=== PATIENT | female | born 1975 | race Caucasian/White ===

== ENCOUNTER 2016-09-28 18:10 | Emergency (ER) | payer BC ==
[2016-09-28 20:21] LABS: HEMOGLOBIN 14.7 gm/dl (12.3-15.3); RED BLOOD COUNT 4.7 M/UL (4.00-5.10); WHITE BLOOD COUNT 5.3 K/UL (4.5-11.0)
[2016-09-28 20:49] LABS: BUN/CREATININE RATIO 12 (0-10)
== END 2016-09-28 21:30 | disposition home or self-care (01) ==
LOC: ER1 18:10
PROVIDERS: Physician Assistant Medical
DX: B37.3 Candidiasis of vulva and vagina (principal); R03.0 Elevated blood-pressure reading, without diagnosis of hypertension
CPT/HCPCS: 36415; 80053; 81001; 83690; 84703; 85025; 99283